=== PATIENT | male | born 1995 | race Caucasian/White ===

== ENCOUNTER 2020-04-15 16:29 | Outpatient (CLI) | payer OTHER, SELFPAY ==
[2020-04-15 17:03] LABS: Hemoglobin 15.3 g/dL (14.0-18.0); Mean Corpuscular HGB Conc 33.3 g/dl (32-36); Mean Corpuscular Hemoglobin 29.4 pg (26-34); Mean Corpuscular Volume 88.3 fl (80-100); Mean Platelet Volume 10.4 fl (7.4-10.4); Platelet Count Result 184 k/mm3 (150-375); Red Blood Count 5.21 M/mm3 (4.6-6.20); Red Cell Distribution Width 12.2 % (11.5-14.5); White Blood Count 5.6 K/mm3 (4.5-10.0)
[2020-04-15 17:10] LABS: Alanine Aminotransferase 34 U/L (4-50); Albumin Level 4.5 g/dL (3.5-5.1); Alkaline Phosphatase 83 U/L (38-126); Amylase 76 U/L (30-110); Aspartate Amino Transferase 29 U/L (17-59); Bilirubin,Total 0.5 mg/dL (0.2-1.3); Blood Urea Nitrogen 12 mg/dL (9-20); Calcium 9.2 mg/dL (8.4-10.2); Carbon Dioxide 31 mmol/L (22-30); Chloride 103 mmol/L (98-107); Estimated Glomerular Filt Rate > 60; Glucose 112 mg/dL (75-110); Lipase 66 U/L (23-300); Potassium 4.1 mmol/L (3.4-5.0); Sodium 139 mmol/L (137-145)
[2020-04-15 18:16] LABS: Folic Acid 13.8 ng/mL (2.76->20)
== END 2020-04-15 16:30 | disposition home or self-care (01) ==
PROVIDERS: PCP Family Medicine; Visit Provider Family Medicine
DX: R53.83 Other fatigue (principal); R11.10 Vomiting, unspecified
CPT/HCPCS: 36415; 80053; 82150; 82607; 82746; 83690; 84443; 85027

== ENCOUNTER 2020-04-20 11:45 | Outpatient (CLI) | payer OTHER, SELFPAY ==
--- NOTE | ~2020-04-20 | US_ITS ---
EXAMINATION: US right upper quadrant DATE: 04/20/2020 12:19 INDICATION: Nausea and vomiting. TECHNIQUE: Multiple grayscale and Doppler ultrasound images of the abdomen were obtained. COMPARISON: None FINDINGS: The visualized portions of the head and body of the pancreas are normal. The liver is harika l without focal lesion. There is normal flow in main portal vein. The gallbladder is normal in size. No gallstones or gallbladder wall thickening. There was no sonographic Sanders sign. The common duct i s normal and measures 6 mm. IMPRESSION: 1. Normal right upper quadrant ultrasound. Reviewed, dictated and finalized at location A.
== END 2020-04-20 11:46 | disposition home or self-care (01) ==
LOC: ANHIMG 11:49
PROVIDERS: PCP Family Medicine; Visit Provider Family Medicine
DX: R11.0 Nausea (principal); R11.10 Vomiting, unspecified
CPT/HCPCS: 76705

== ENCOUNTER 2020-04-28 08:23 | Outpatient (CLI) | payer OTHER, SELFPAY ==
--- NOTE | ~2020-04-28 | NM_ITS ---
EXAMINATION: NM hepatobiliary wo pharm DATE: 04/28/2020 12:05 CDT INDICATION: Abdominal pain COMPARISON: Ultrasound dated 04/20/2020. TECHNIQUE: 5 mCi Tc-99m mebrofenin (Choletec) was administered intravenously. Scintigraphic images o f the abdomen were obtained for one hour. At the 1 hour time point, the patient drank 8 oz Ensure, an d imaging was continued for 60 minutes. Gallbladder ejection fraction was calculated by the technolog ist. FINDINGS: There is normal clearance of radiotracer from the blood pool. There is homogeneous tracer u ptake by the liver. Activity progresses to the bowel and gallbladder. The gallbladder ejection fract ion is 43%. Note that with this technique, normal GBEF >= 33%. IMPRESSION: 1. Normal hepatobiliary scan. Reviewed, dictated and finalized at location A.
== END 2020-04-28 08:24 | disposition home or self-care (01) ==
PROVIDERS: PCP Family Medicine; Visit Provider Family Medicine
DX: R10.9 Unspecified abdominal pain (principal); R11.2 Nausea with vomiting, unspecified
CPT/HCPCS: 78226; A9537

== ENCOUNTER 2020-05-23 06:26 | Outpatient (CLI) | payer OTHER, SELFPAY ==
[2020-05-23 17:27] LABS: SARS-CoV-2 RNA PCR Negative
== END 2020-05-23 06:27 | disposition home or self-care (01) ==
LOC: ANHCOVIDDT 06:27
PROVIDERS: PCP Family Medicine; Visit Provider Internal Medicine Gastroenterology
DX: Z01.812 Encounter for preprocedural laboratory examination (principal); Z11.59 Encounter for screening for other viral diseases
CPT/HCPCS: 87635; C9803; U0003

== ENCOUNTER 2020-05-26 02:36 | Day surgery (SDC) | payer OTHER, SELFPAY ==
[2020-05-18 13:03] VITALS: BMI 36.3
[2020-05-26 08:43] VITALS: BP 127/97; PULSE 80; RESP 18; TEMP 36.6; O2SAT 100
[2020-05-26] MEDS: LACTATED RINGERS 1,000 ML 150 ML IV CONT (08:54)
--- NOTE | 2020-05-26 09:31 | WPDANESEPPF ---
Anes - Initial Pre Proc Eval Procedure: Operation Date: 05/26/20 10:00 Proposed Procedures p Esophagogastroduodenoscopy - Abdon Nava MD Date/Time: 05/26/20 09:31 Surgeon: Abdon Nava MD Pre Op Diagnosis: Nausea, Vomiting Patient Data Age: 24 Gender: M Height: 6 ft 8 in Weight: 152 kg Last Vital Signs Temp 97.9 F 05/26/20 08:43 Pulse 80 05/26/20 08:43 Resp 18 05/26/20 08:43 BP 127/97 H 05/26/20 08:43 Pulse Ox 100 05/26/20 08:43 Allergies Allergy/AdvReac Type Severity Reaction Status Date / Time poison dee extract AdvReac Severe rash Verified 05/26/20 08:42 Home Medications Medication Instructions Recorded Confirmed Type famotidine 40 mg tablet 40 mg PO DAILY #30 tablet 04/15/20 05/26/20 Rx ondansetron 4 mg disintegrating 4 mg PO Q8H PRN #12 tablet 04/28/20 05/26/20 Rx tablet Patient hx anesthesia problems: none Family hx anesthesia problems: none PMFSH Past Medical History Medical History (Updated 05/01/20 @ 11:25 by Abdon Nava MD) Nausea and vomiting in adult Social History Social History Smoking status: Never smoker Alcohol intake: current Substance use: never Substance use type: does not use Gender identity (if verbalized by the patient): Male Anes - Eval Final PreProcedure Day of Procedure 05/26/20 09:31 Patient weight: obese Heart: regular rate and rhythm Lungs: clear to auscultation Airway: Mallampati scale class II Neurological: alert and oriented Last oral intake: >/= 8 hours ASA classification: II Emergent: no Anesthetic plan: proceed Anesthesia type and monitoring: general GIVS and standard monitoring Informed Consent: The patient's anesthetic plan and its attendant risks and benefits were discussed with the patient/family/POA. Questions were solicited and answers provided to the satisfaction of the patient/family/POA.
--- NOTE | 2020-05-26 09:51 | WPDHPUPDATE1 ---
History and Physical Update Update Date/Time: 05/26/20 09:51 History and Physical has been reviewed, including an updated exam of the patient. There are NO changes in the patient's condition. Risks, benefits, and alternatives have been discussed and questions answered. Patient agrees to proceed with procedure.
[2020-05-26 10:07] VITALS: BP 129/76; PULSE 75; RESP 22; O2SAT 98
[2020-05-26 10:17] VITALS: BP 125/77; PULSE 72; RESP 22; O2SAT 98
[2020-05-26 10:27] VITALS: BP 130/91; PULSE 67; RESP 22; O2SAT 98
== END 2020-05-26 10:35 | disposition home or self-care (01) ==
PROVIDERS: PCP Family Medicine; Visit Provider Internal Medicine Gastroenterology
PROC: 0DJ08ZZ Inspection of Upper Intestinal Tract, Via Natural or Artificial Opening Endoscopic (ICD-10-PCS; CPT 43235; principal; 2020-05-26 10:00)
DX: K29.70 Gastritis, unspecified, without bleeding (principal); K20.9 Esophagitis, unspecified; E66.9 Obesity, unspecified; Z68.36 Body mass index [BMI] 36.0-36.9, adult
CPT/HCPCS: 43239; 87635; 88305; C9803; J2704; J7120; U0003

== ENCOUNTER 2020-07-21 08:38 | Outpatient (CLI) | payer OTHER, SELFPAY ==
--- NOTE | ~2020-07-21 | US_ITS ---
EXAMINATION: US abdomen complete DATE: 07/21/2020 09:07 INDICATION: Nausea with vomiting, unspecified TECHNIQUE: Multiple grayscale and Doppler ultrasound images of the abdomen were obtained. COMPARISON: 04/20/2020 FINDINGS: The head and and body of the pancreas are normal. The pancreatic tail is obscured by bowel gas. The liver is normal with normal echogenicity and echotexture. No surface nodularity. Normal hepa topetal flow in the main portal vein. The gallbladder is normal with no abnormal wall thickening, per icholecystic fluid or stones. The normal common bile duct measures 6 mm. There was no sonographic Mur phy sign. The visualized portions of the aorta and inferior vena cava are normal. The right kidney measures 11.2 x 6.2 x 6.5 cm. The left kidney measures 13.9 x 5.7 x 4.9 cm. The kidn eys demonstrate normal parenchymal echogenicity. There is no hydronephrosis. The spleen is normal in appearance and measures 13.4 cm. IMPRESSION: 1. No sonographic correlate for the patient's symptoms. Reviewed, dictated and finalized at location A.
== END 2020-07-21 08:39 | disposition home or self-care (01) ==
PROVIDERS: PCP Family Medicine; Visit Provider Internal Medicine Gastroenterology
DX: R11.2 Nausea with vomiting, unspecified (principal)
CPT/HCPCS: 76700

== ENCOUNTER 2020-11-04 11:00 | Outpatient (CLI) | payer OTHER, SELFPAY ==
--- NOTE | ~2020-11-04 | MR_ITS ---
EXAMINATION: MR brain/brain stem wo/w con DATE: 11/04/2020 12:09 INDICATION: Seizure. Abnormal findings on diagnostic imaging of skull and head, not elsewhere classif ied. TECHNIQUE: Magnetic resonance imaging (MRI) of the brain and brainstem was performed without and with 20 mL MultiHance intravenous contrast. Sequences included sagittal and axial T1-weighted FSE, axial diffusion-weighted FS EPI, axial T2*-weighted GRE, axial T2-weighted FLAIR Propeller, axial T2-weight ed Propeller, coronal T2-weighted FLAIR, and coronal T1-weighted 3D FSPGR. Postcontrast axial and cor onal T1-weighted FSE was obtained. Apparent diffusion coefficient (ADC) maps were created. COMPARISON: None. FINDINGS: The hippocampi are normal and symmetric. There is no intracranial hemorrhage, acute infarct ion, or abnormal intracranial mass lesion. The ventricles are normal in size. There is mild mucosal t hickening in the ethmoid sinuses. The orbits are normal. The mastoid air cells are normal. IMPRESSION: 1. Normal brain. Reviewed, dictated and finalized at location A. CAR OPERATOR IMPRESSION: 1. Normal brain.
[2020-11-04 11:41] LABS: Estimated Glomerular Filt Rate > 60
== END 2020-11-04 11:01 | disposition home or self-care (01) ==
PROVIDERS: PCP Family Medicine; Visit Provider Physician Assistant
DX: R56.9 Unspecified convulsions (principal); R93.0 Abnormal findings on diagnostic imaging of skull and head, not elsewhere classified
CPT/HCPCS: 70553; A9577

== ENCOUNTER 2021-05-15 10:35 | Outpatient (CLI) | payer OTHER, SELFPAY ==
[2021-05-19 09:02] LABS: Levetiracetam Keppra 7.3 mcg/mL (12.0-46.0)
== END 2021-05-15 10:36 | disposition home or self-care (01) ==
PROVIDERS: PCP Family Medicine
DX: G40.209 Localization-related (focal) (partial) symptomatic epilepsy and epileptic syndromes with complex partial seizures, not intractable, without status epilepticus (principal)
CPT/HCPCS: 36415; 80177

== ENCOUNTER 2022-07-18 06:41 | Outpatient (CLI) | payer OTHER, SELFPAY ==
--- NOTE | 2022-07-18 10:55 | WPDNEUROLOGY ---
Neurology EEG Report General Information Date of Study: 07/18/22 TEST Routine EEG DIAGNOSIS Epilepsy CONDITION OF RECORDING Awake and Drowsy EEG NUMBER [id number] CLINICAL HISTORY Patient reports he started having seizures 4-5 years ago from having several concussions. Seizures have been well-controlled with meds. About two months ago he started taking a medication for depression and began having episodes of zoning out for 30-60 seconds. EEG DESCRIPTION During the awake state with eyes closed the background consists of 10 Hz posterior dominant rhythm which attenuates appropriately with eye opening. The recording is continuous. There is a well developed anterior-posterior gradient. No significant asymmetries of background activities are noted. With drowsiness there is was waxing and waning of the dominant rhythm. Stage II sleep was not achieved. Photic stimulation did not elicit any seizures or epileptiform features. IMPRESSION This is a normal routine EEG recorded in awake and drowsy states. There are no electrographic seizures identified, nor are there any epileptiform discharges. Please note that a normal EEG cannot exclude a seizure disorder. Clinical correlation is recommended.
== END 2022-07-18 06:42 | disposition home or self-care (01) ==
PROVIDERS: PCP Family Medicine; Visit Provider Psychiatry & Neurology Neurology
DX: G40.909 Epilepsy, unspecified, not intractable, without status epilepticus (principal)
CPT/HCPCS: 95816

== ENCOUNTER 2025-05-19 12:35 | Outpatient (CLI) | payer OTHER, SELFPAY ==
--- OUTSIDE RECORDS SUMMARY | 2025-05-19 12:28 | XMS_ITS | Referral Summary ---
Author Organization [facility] Address [address] [place] [address] Care Team Providers Care Quantitative Researcher Name Role Phone Bulmaro Doan MD Primary Care Provider Bulmaro Doan MD Unavailable [phone] Encounters Date Type Department Care Team Description 02/26/2025 10:00 AM CDT Office Visit [facility] Epilepsy [address] [place] [address] [place] [address] Gregory Boland III, MD Convulsions, unspecified convulsion type (HCC) from Last 3 Months Allergies No known active allergies Medications omeprazole (PriLOSEC) 40 mg capsule Take 1 capsule (40 mg total) by mouth 2 (two) times a day 3 Active lacosamide (VIMPAT) 150 mg tabletIndication s:Convulsions, unspecified convulsion type (HCC) Take 2 tablets (300 mg total) by mouth 2 (two) times a day 360 tablet 3 5 02/27/20 26 Active levETIRAcetam XR (KEPPRA XR) 750 mg tablet extended release 24 hrIndications:Co nvulsions, unspecified convulsion type (HCC) Take 2 tablets (1,500 mg total) by mouth nightly 180 tablet 3 5 06/24/20 26 Active levETIRAcetam XR (KEPPRA XR) 750 mg tablet extended release 24 hrIndications:Co nvulsions, unspecified convulsion type (HCC) Take 2 tablets (1,500 mg total) by mouth nightly 180 tablet 3 5 05/13/20 25 Discontinu ed(Reorder ) Active Problems Problem Noted Date Diagnosed Date Seizure 02/06/2023 Partial symptomatic epilepsy with complex partial seizures, not intractable, without status epilepticus 12/14/2020 Social History Tobacco Use Types Packs/Day Years Used Date Smoking Tobacco: Never Tobacco Cessation:Counseling Given: Not Answered Personal Safety Answer Date Recorded Have you ever been in or are you currently in a harmful physical or emotional relationship or is someone making you feel afraid or unsafe? Denies 12/25/2023 Sex and Gender Information Value Date Recorded Sex Assigned at Not on file Legal Sex Male 3:19 PM PUBLICITY DIRECTOR Gender Identity Not on file Sexual Orientation Not on file Last Filed Vital Signs Vital Sign Reading Time Taken Comments Blood Pressure 154/82 02/26/2025 9:54 AM CDT Pulse 79 02/26/2025 9:54 AM CDT Temperature 36.8 C (98.2 F) 12/25/2023 5:44 PM PUBLICITY DIRECTOR Respiratory Rate 17 12/25/2023 5:44 PM PUBLICITY DIRECTOR Oxygen Saturation 97% 12/25/2023 5:44 PM PUBLICITY DIRECTOR Inhaled Oxygen Concentration - - Weight 149.7 kg (330 lb) 02/26/2025 9:54 AM CDT Height 203.2 cm (6' 8) 02/26/2025 9:54 AM CDT Body Mass Index 36.25 02/26/2025 9:54 AM CDT Plan of Treatment Not on file Insurance [facility] [employer] [employer]ENS[employer] GENERIC [address] [place] [address] WORKERS COMPENSATION GENERIC Advance Directives For more information, please contact: [phone] * Full Code (Latest Code Status on File) Date Activated Date Inactivated Comments 02/06/2023 10:37 AM 02/10/2023 6:32 PM Care Teams Quantitative Researcher Relationship Specialty Start Date End Date Bulmaro Doan MD [address] [place] [address] PCP - General 11/27/20 Bulmaro Doan MD [address] [place] [address] Family Medicine 11/27/20
--- OUTSIDE RECORDS SUMMARY | 2025-05-19 12:28 | XMS_ITS | Clinical Summary ---
Author Organization [facility] [employer] Address [address] [place] [address] Care Team Providers Care Lead Setter Name Role Phone Unavailable Primary Care Provider Unavailabl e Source Comments [employer],non-owned Affiliates and Associated Physician Practices is amultiple site organization consisting of ambulatory clinics and hospital sitesin [place], [place], [place] and [place]. This disclosure is being madepursuant to the Care Everywhere program and may not contain all information available regarding this patient. Last updated 18.[employer] Allergies No known active allergies Medications * Be aware that medications may not be up to date on this document. Alwaysverify current medications with the patient. No known medications Social History Tobacco Use Types Packs/Day Years Used Date Smoking Tobacco: Never Smokeless Tobacco: Never Tobacco Cessation:Counseling Given: Yes Sex and Gender Information Value Date Recorded Sex Assigned at Not on file Legal Sex Male 6:10 AM INVENTORY SPECIALIST MANAGER Gender Identity Not on file Sexual Orientation Not on file Last Filed Vital Signs Vital Sign Reading Time Taken Comments Blood Pressure 118/76 01/14/2019 9:13 AM INVENTORY SPECIALIST MANAGER Pulse 82 01/14/2019 9:13 AM INVENTORY SPECIALIST MANAGER Temperature 37.3 C (99.2 F) 01/14/2019 9:13 AM INVENTORY SPECIALIST MANAGER Respiratory Rate - - Oxygen Saturation 98% 01/14/2019 9:13 AM INVENTORY SPECIALIST MANAGER Inhaled Oxygen Concentration - - Weight 134.7 kg (297 lb) 01/14/2019 9:13 AM INVENTORY SPECIALIST MANAGER Height 203.2 cm (6' 8) 01/14/2019 9:13 AM INVENTORY SPECIALIST MANAGER Body Mass Index 32.63 01/14/2019 9:13 AM INVENTORY SPECIALIST MANAGER Plan of Treatment Health Maintenance Due Date Last Done Comments HIV SCREENING 2011 HEPATITIS C SCREENING 06/08/2014 DTAP/TDAP/TD VACCINES (1 - Tdap) 2015 HEPATITIS B VACCINE (1 of 3 - 19+ 3-dose series) 2015 COVID-19 VACCINE (1 - 2023-2 5 season) 2024 DEPRESSION SCREENING 11/20/2024 INFLUENZA VACCINE (Season Ended) 2025 ZOSTER VACCINE (1 of 2) 2046 HIB VACCINE Aged Out No longer eligi ble based on patient's age to complete this topic HPV VACCINE Aged Out No longer eligi ble based on patient's age to complete this topic MENINGOCOCCAL (Group B) VACC INE SHARED DECISION-MAKING Aged Out No longer eligibl e based on patient's age to complete this topic MENINGOCOCCAL GROUPS A/C/Y/W VACCINE Aged Out No longer eligible b ased on patient's age to complete this topic PNEUMOCOCCAL VACCINE Aged Out No long er eligible based on patient's age to complete this topic Insurance [place] [address] [place] [address] CARE
--- OUTSIDE RECORDS SUMMARY | 2025-05-19 12:28 | XMS_ITS | Clinical Summary ---
Author Organization [facility] Address [address] [place] [address] Care Team Providers Care Diesel Dragline Operator Name Role Phone Bulmaro Doan MD Primary Care Provider Allergies No known active allergies Medications No known medications Social History Tobacco Use Types Packs/Day Years Used Date Smoking Tobacco: Never Smokeless Tobacco: Never Alcohol Use Standard Drinks/Week Comments Never 0 (1 standard drink = 0.6 oz pur e alcohol) AUDIT-C Answer Date Recorded Q1: How often do you have a drink containing alc ohol? Never 10/27/2020 Average Number of Drinks Not on file 020 Frequency of Binge Drinking Not on file 06/2020 Sex and Gender Information Value Date Recorded Sex Assigned at Not on file Legal Sex Male 12:47 AM MEDICAL SURGICAL TECH Gender Identity Not on file Sexual Orientation Not on file Last Filed Vital Signs Vital Sign Reading Time Taken Comments Blood Pressure 138/69 10/27/2020 3:02 AM MEDICAL SURGICAL TECH Pulse 81 10/27/2020 3:02 AM MEDICAL SURGICAL TECH Temperature 36.8 C (98.3 F) 10/27/2020 3:02 AM MEDICAL SURGICAL TECH Respiratory Rate 19 10/27/2020 3:02 AM MEDICAL SURGICAL TECH Oxygen Saturation 100% 10/27/2020 3:02 AM MEDICAL SURGICAL TECH Inhaled Oxygen Concentration - - Weight 153.1 kg (337 lb 8.4 oz) 020 12:50 AM MEDICAL SURGICAL TECH Height 203.2 cm (6' 8) 10/27/2020 12:5 0 AM MEDICAL SURGICAL TECH Body Mass Index 37.08 10/27/2020 12:50 AM MEDICAL SURGICAL TECH Plan of Treatment Health Maintenance Due Date Last Done Comments Annual Physical 1999 Hepatitis C 2014 DTaP, Tdap and Td Vaccines ( 1 - Tdap) 2015 Hepatitis B Vaccines (1 of 3 - 19+ 3-dose series) 2015 COVID-19 Vaccine (2023-2 5 season) 2024 HPV Vaccines Aged Out No longer eligi ble based on patient's age to complete this topic Meningococcal B Vaccine Aged Out No l onger eligible based on patient's age to complete this topic Meningococcal Vaccine Aged Out No axel sandy eligible based on patient's age to complete this topic Pneumococcal Vaccine: Pediat rics (0 to 5 Years) and At-Risk Patients (6 to 49 Years) Aged Out No longer eligible b ased on patient's age to complete this topic RSV Immunizations Under 20 Months Aged Out No longer eligible based on patient's age to complete this topic Insurance Care Teams Diesel Dragline Operator Relationship Specialty Start Date End Date Bulmaro Doan MD [address] [place] [address] PCP - General FAMILY PRACTICE 10/27/20
--- OUTSIDE RECORDS SUMMARY | 2025-05-19 12:28 | XMS_ITS | Clinical Summary ---
Author Organization [facility] Address [address] [place] [address] Care Team Providers Care Technician Inventory Specialist Name Role Phone Bulmaro Doan MD Primary Care Provider Bulmaro Doan MD Unavailable [phone] Allergies No known active allergies Medications omeprazole [...] mouth nightly 180 tablet 3 5 05/13/20 26 Active levETIRAcetam XR (KEPPRA XR) 750 mg tablet extended release 24 hrIndications:Co nvulsions, unspecified convulsion type (HCC) Take 2 tablets (1,500 mg total) by mouth nightly 180 tablet 3 5 05/13/20 25 Discontinu ed(Reorder ) Active Problems Problem Noted Date Diagnosed Date Seizure 02/06/2023 Partial symptomatic epilepsy with complex partial seizures, not intractable, without status epilepticus 12/14/2020 Encounters Date Type Department Care Team Description 02/26/2025 10:00 AM CDT Office Visit [facility] Epilepsy [address] [place] [address] [place] [address] Gregory Boland III, MD Convulsions, unspecified convulsion type (HCC) from Last 3 Months Medical History Medical History Date Comments Partial symptomatic epilepsy with complex partial seizures, not intractable, without status epilepticus (HCC) 12/14/2020 Social History Tobacco Use Types Packs/Day [...] on file Legal Sex Male 3:19 PM WASTEWATER PROJECT ENGINEER Gender Identity Not on file Sexual Orientation Not on file Obstetrics History Last Filed Vital Signs Vital Sign Reading Time Taken Comments Blood Pressure 154/82 02/26/2025 9:54 AM CDT Pulse 79 02/26/2025 9:54 AM CDT Temperature 36.8 C (98.2 F) 12/25/2023 5:44 PM WASTEWATER PROJECT ENGINEER Respiratory Rate 17 12/25/2023 5:44 PM WASTEWATER PROJECT ENGINEER Oxygen Saturation 97% 12/25/2023 5:44 PM WASTEWATER PROJECT ENGINEER Inhaled Oxygen Concentration - - Weight 149.7 kg (330 lb) 02/26/2025 9:54 AM CDT Height 203.2 cm (6' 8) 02/26/2025 9:54 AM CDT Body Mass Index 36.25 02/26/2025 9:54 AM CDT Plan of Treatment Health Maintenance Due Date Last Done Comments Depression Screening 1996 Hepatitis C Screening 1996 DTaP/Tdap/Td Vaccine (1 - Tdap) 2007 Varicella Vaccines (1 of 2 - 13+ 2-dose series) 2009 Hepatitis B Screening 2014 Regular Well Visit/Exam 18-64 2014 Influenza Vaccine (Season Ended) 2025 HPV Vaccines Aged Out No longer eligi ble based on patient's age to complete this topic Pneumococcal vaccine <65 Aged Out No longer eligible based on patient's age to complete this topic Insurance [facility] CHO[facility] PLUS [facility] PLUS WORKERS COMPENSATION GENERIC WORKERS COMPENSATION GENERIC Advance Directives For more information, please contact: [phone] * Full Code (Latest Code Status on File) Date Activated Date Inactivated Comments 02/06/2023 10:37 AM 02/10/2023 6:32 PM Care Teams Technician Inventory Specialist Relationship Specialty Start Date End Date Bulmaro Doan MD [address] [place] [address] PCP - General 11/27/20 Bulmaro Doan MD [address] [facility] [address] [place] [address] Family Medicine 11/27/20
[2025-05-19 13:48] LABS: Basophils Percent Auto 0.6 % (0.2-1.2); Eosinophils Absolute Auto 0.1 K/mm3 (0-0.3); Eosinophils Percent Auto 1.6 % (0-4.4); Hematocrit 46.4 % (42.0-52.0); Hemoglobin 15.6 g/dL (14.0-18.0); Immature Granulocyte Absolute 0.02 K/mm3 (0.00-0.031); Immature Granulocyte Percent A 0.3 % (0-0.5); Lymphocytes Absolute Auto 2.53 K/mm3 (0.9-3.2); Lymphocytes Percent Auto 36.6 % (18.3-44.2); Mean Corpuscular HGB Conc 33.6 g/dl (32-36); Mean Corpuscular Hemoglobin 29.5 pg (26-34); Mean Corpuscular Volume 87.9 fl (80-100); Monocytes Absolute Auto 0.3 K/mm3 (0.1-0.6); Monocytes Percent Auto 4.6 % (2.6-8.5); Neutrophils Absolute Auto 3.9 K/mm3 (1.3-6.7); Neutrophils Percent Auto 56.3 % (45.5-73.1); Platelet Count Result 234 k/mm3 (150-375); Red Blood Count 5.28 M/mm3 (4.6-6.20); Red Cell Distribution Width 12.2 % (11.5-14.5); White Blood Count 6.9 K/mm3 (4.5-10.0)
[2025-05-19 14:08] LABS: Alanine Aminotransferase 47 U/L (6-50); Albumin Level 4.6 g/dL (3.5-5.1); Alkaline Phosphatase 87 U/L (38-126); Anion Gap 10 mmol/L (4-12); Aspartate Amino Transferase 35 U/L (17-59); Bilirubin,Total 0.6 mg/dL (0.2-1.3); Blood Urea Nitrogen 10 mg/dL (9-20); Calcium 9.6 mg/dL (8.4-10.2); Carbon Dioxide 29 mmol/L (22-30); Chloride 103 mmol/L (98-107); Cholesterol 211 mg/dL (0-200); Estimated Glomerular Filt Rate > 60; Glucose 96 mg/dL (65-110); HDL Direct 38 mg/dL; Potassium 4.1 mmol/L (3.4-5.0); Sodium 142 mmol/L (137-145); Total Protein 7.9 g/dL (6.3-8.2); Triglycerides 148 mg/dL (<150)
[2025-05-19 14:19] LABS: LDL Cholesterol Direct 130 mg/dL
== END 2025-05-19 12:36 | disposition home or self-care (01) ==
PROVIDERS: PCP Family Medicine; Visit Provider Student in an Organized Health Care Education/Training Program
DX: E78.5 Hyperlipidemia, unspecified (principal)
CPT/HCPCS: 36415; 80053; 80061; 85025